=== PATIENT | female | born 2000 | race Caucasian/White ===

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

== ENCOUNTER 2023-04-04 01:41 | Emergency (ER) | payer OTHER ==
[~2023-04-04] VITALS: Ht 165.1 cm; Wt 73.0 kg
[2023-04-04 01:44] VITALS: O2SAT 98
[2023-04-04 01:46] VITALS: TEMP 99
[2023-04-04] MEDS ORDERED: IOHEXOL-300 100 ML BOTTLE ONE (02:24)
[2023-04-04 02:28] LABS: BASOPHILS % 0.3 % (0.0-2.0); EOSINOPHILS % 0.8 % (0.0-5.0); HEMATOCRIT. 37.9 % (36.0-48.0); HEMOGLOBIN. 12.6 g/dL (12.0-16.0); LYMPHOCYTES % 41.6 % (20.0-50.0); MEAN CORPUSCULAR HEMOGLOBIN 27.5 pg (28.0-32.0); MEAN CORPUSCULAR HGB CONC 33.3 g/dL (31.0-37.0); MEAN CORPUSCULAR VOLUME 82.5 fL (81.0-99.0); MEAN PLATELET VOLUME 9.9 fl (7.4-10.4); MONOCYTES % 4.8 % (2.0-8.0); NEUTROPHILS % 52.5 % (40.0-76.0); PLATELET 308 x1000/uL (130-400); RED CELL DISTRIBUTION WIDTH 15.8 % (11.6-14.6); WHITE BLOOD COUNT 16.6 x1000/uL (4.5-11.0)
[2023-04-04 02:35] LABS: CHLORIDE 106 mEq/L (98-107); INDEX HEMOLYSI 2 (1-3); INDEX ICTERIC 1 (1-4); INDEX LIPEMIC 1 (1-3); POTASSIUM 3.4 mEq/L (3.5-5.1); SODIUM 138 mEq/L (136-145)
[2023-04-04 02:37] LABS: PROTHROMBIN TIME 11.1 sec (9.6-11.0)
[2023-04-04 02:41] LABS: HCG SCREEN NEGATIVE
[2023-04-04 02:45] LABS: ALANINE AMINOTRANSFERASE 16 IU/L (13-61); ALBUMIN 4.3 g/dL (3.4-5.0); ASPARTATE AMINOTRANSFERASE 14 IU/L (15-37); BILIRUBIN TOTAL 0.2 mg/dL (0.1-1.0); CALCIUM 8.7 mg/dL (8.5-10.1); CARBON DIOXIDE 21 mEq/L (21-32); CREATININE 0.6 mg/dL (0.6-1.3); ETHANOL BLOOD < 10 mg/dL (<10); GLUCOSE 114 mg/dL (70-105); PROTEIN TOTAL 8.2 g/dL (6.0-8.3); UREA NITROGEN BLOOD 8 mg/dL (7-21)
[2023-04-04] MEDS ORDERED: TETANUS, DIPHTHERIA, PERTUSSIS VAC/PF 0.5ML (>10YR OLD) IM ONE (03:00)
[2023-04-04] MEDS ORDERED: ONDANSETRON HCL 4MG/2ML INJ IV ONE (03:15)
[2023-04-04] MEDS ORDERED: MORPHINE SULFATE 4 MG/ML CPJ (NOT FOR IM USE) IV ONE (03:15)
[2023-04-04] MEDS ORDERED: LIDOCAINE HCL/EPINEPHRINE 1%-EPI 1:100,000 20 ML VIAL INFIL ONE (03:15)
[2023-04-04 03:58] LABS: TROPONIN I HIGH SENSITIVITY < 4 ng/L (<54)
[2023-04-04] MEDS ORDERED: TOPUD PO (04:44)
[2023-04-04] MEDS ORDERED: IBUP-2028 MT (04:44)
[2023-04-04] MEDS ORDERED: BACITRACIN ZINC OINT UDPKT TOP ONE (04:45)
[2023-04-04 05:26] VITALS: BP 117/64; PULSE 81; RESP 15
== END 2023-04-04 05:27 | disposition home or self-care (01) ==
LOC: ER 01:41
DX: S41.111A Laceration without foreign body of right upper arm, initial encounter (principal); W34.00XA Accidental discharge from unspecified firearms or gun, initial encounter; Y93.89 Activity, other specified; Y92.89 Other specified places as the place of occurrence of the external cause; Y99.8 Other external cause status
CPT/HCPCS: 80053; 80320; 84703; 85025; 85610; 86850; 86900; 86901; 84484; 36415; 71045; 73060; 71260; 73201; 74177; 90715; 12001; 90471; 96374; 96375; 99285; Q9967; J3490; J2405; J2270; Z7610 ×2; G0480

== ENCOUNTER 2023-04-16 11:49 | Emergency (ER) | payer OTHER ==
[~2023-04-16] VITALS: Ht 154.9 cm; Wt 49.0 kg
[~2023-04-16 11:49] MED LIST: IBUP-2028 MT; TOPUD PO
[2023-04-16 11:53] VITALS: BP 109/54; PULSE 61; RESP 16; TEMP 97.7; O2SAT 99
== END 2023-04-16 12:39 | disposition home or self-care (01) ==
LOC: ER 11:49
DX: S41.111D Laceration without foreign body of right upper arm, subsequent encounter (principal); F41.9 Anxiety disorder, unspecified; X58.XXXD Exposure to other specified factors, subsequent encounter
CPT/HCPCS: 99281; Z7610